=== PATIENT | female | born 1990 | race African-American/Black ===

== ENCOUNTER 2017-04-18 10:45 | Emergency (ER) | payer MEDICAID ==
[~2017-04-18] VITALS: Ht 160 cm; Wt 82.0 kg
[~2017-04-18 10:45] MED LIST: ALPR1TAB2 PO; AZAT50TA18 PO; QUET100T PO; TOPI25TA7 PO; TRAZ-129 PO; VENL37.586 PO
[2017-04-18] MEDS ORDERED: ALPRAZOLAM 0.5 MG TABLET PO ONE (11:15)
[2017-04-18 11:58] LABS: BASOPHILS % 0.8 % (0.0-2.0); EOSINOPHILS % 0.7 % (0.0-5.0); HEMATOCRIT. 33.9 % (36.0-48.0); HEMOGLOBIN. 10.7 g/dL (12.0-16.0); LYMPHOCYTES % 21.5 % (20.0-50.0); MEAN CORPUSCULAR HEMOGLOBIN 21.6 pg (28.0-32.0); MEAN CORPUSCULAR VOLUME 68.5 fL (81.0-99.0); MEAN PLATELET VOLUME 8.3 fl (7.4-10.4); MONOCYTES % 5.6 % (2.0-8.0); NEUTROPHILS % 71.4 % (40.0-76.0); PLATELET 377 x1000/uL (130-400); RED BLOOD CELL COUNT 4.94 mill/uL (4.2-5.4); RED CELL DISTRIBUTION WIDTH 19.4 % (11.6-14.6)
[2017-04-18] MEDS ORDERED: ONDANSETRON HCL 4MG/2ML VIAL IV ONE ×2 (12:00→15:00)
[2017-04-18 12:11] LABS: CARBON DIOXIDE 26 mEq/L (21-32); CHLORIDE 107 mEq/L (98-107); ETHANOL BLOOD < 10 mg/dL
[2017-04-18 12:25] LABS: PLATELET ESTIMATE NORMAL
[2017-04-18 12:42] LABS: BG BASE EXCESS -2.8 mmol/L (-2.0-2.0); BG CARBOXYHEMOGLOBIN 0.2 % (0.5-1.5); BG DEOXYHEMOGLOBIN 2.7 % (0.0-5.0); BG FRACTION INSPIRED OXYGEN 21; BG HCO3 ACT 21.5 mmol/L (22.0-26.0); BG METHEMOGLOBIN 0.3 % (0.0-1.5); BG OXYGEN SATURATION 97.3 % (92.0-98.5); BG OXYHEMOGLOBIN 96.8 % (94.0-97.0); BG PCO2 35.2 mmHg (35.0-45.0); BG PH 7.403 (7.350-7.450); BG PO2 99.9 mmHg (75.0-100.0); BG SAMPLE SITE RIGHT BRACHIAL; BG TOTAL HEMOGLOBIN 11.1 g/dL (12.0-18.0); BG VENT MODE ROOM AIR
[2017-04-18 12:57] LABS: CLARITY URINE CLOUDY (CLEAR); COLOR URINE YELLOW (YELLOW); GLUCOSE URINE NEGATIVE (NEGATIVE); KETONES URINE NEGATIVE (NEGATIVE); LEUKOCYTE ESTERASE URINE NEGATIVE (NEGATIVE); NITRITE URINE NEGATIVE (NEGATIVE); OCCULT BLOOD URINE NEGATIVE (NEGATIVE); PROTEIN URINE 1+ (NEGATIVE); SPECIFIC GRAVITY URINE 1.031 (1.005-1.030); UROBILINOGEN URINE 0.2 E.U./dL (0.2-1.0)
[2017-04-18 13:21] LABS: *AMPHETAMINES SCREEN URINE NEGATIVE (NEGATIVE); *BARBITURATES SCREEN URINE NEGATIVE (NEGATIVE); *COCAINE SCREEN URINE NEGATIVE (NEGATIVE); CANNABINOID URINE SCREEN NEGATIVE (NEGATIVE); METHADONE URINE SCREEN NEGATIVE (NEGATIVE); PHENCYCLIDINE URINE SCREEN NEGATIVE (NEGATIVE)
[2017-04-18 13:25] LABS: *BENZODIAZEPINES SCREEN URINE PRESUMTIVE POSITIVE (NEGATIVE); OPIATES URINE SCREEN PRESUMTIVE POSITIVE (NEGATIVE)
[2017-04-18] MEDS ORDERED: KETOROLAC 30MG/ML VIAL IV ONE (15:00)
[2017-04-18 15:20] VITALS: BP 124/73
== END 2017-04-18 16:04 | disposition home or self-care (01) ==
LOC: ER 11:52
DX: K50.90 Crohn's disease, unspecified, without complications (principal); G40.409 Other generalized epilepsy and epileptic syndromes, not intractable, without status epilepticus; F41.9 Anxiety disorder, unspecified; I51.9 Heart disease, unspecified; I10 Essential (primary) hypertension; Z90.49 Acquired absence of other specified parts of digestive tract; Z95.0 Presence of cardiac pacemaker
CPT/HCPCS: 36415; 36600; 70450; 80053; 80305; 81001; 81025; 82375; 82805; 85025; 96374; 96375; 96376; 99285; G0482; J1885; J2405; Z7610

== ENCOUNTER 2017-05-09 17:09 | Emergency (ER) | payer MEDICAID ==
[~2017-05-09] VITALS: Ht 170.2 cm; Wt 81.8 kg
[~2017-05-09 17:09] MED LIST changes: +AMIODARONE HCL 50MG/ML 3ML VIAL IV ONE; +DOPAMINE 400MG IN DEXT 5% 250ML PREMIX IV ONE; +EPINEPHRINE 0.1MG/ML (1:10,000) 10ML SYR ONE; +MAGNESIUM SULFATE 4G IN WATER 100ML PREMIX IV ONE; +SODIUM BICARBONATE 7.5% 0.9 MEQ/ML 50ML SYR IV ONE
[2017-05-09] MEDS ORDERED: LORAZEPAM 2MG/ML CPJ ONE (17:22)
[2017-05-09] MEDS ORDERED: EPINEPHRINE 0.1MG/ML (1:10,000) 10ML SYR ONE (17:32)
[2017-05-09] MEDS ORDERED: SODIUM CHLORIDE 0.9% 1,000 ML IV ONE (17:40)
[2017-05-09] MEDS ORDERED: DOPAMINE 400MG PREMIX 250 ML IV ONE (17:45)
[2017-05-09] MEDS ORDERED: EPINEPHRINE 4 MG in DEXT 5% WATER 250 ML IV ONE (17:45)
[2017-05-09] MEDS ORDERED: EPINEPHRINE 1 MG in SODIUM CHLORIDE 0.9% 249 ML IV PRN ×3 (17:45→18:30)
[2017-05-09 17:59] LABS: BASOPHILS % 1.2 % (0.0-2.0); EOSINOPHILS % 0.3 % (0.0-5.0); HEMATOCRIT. 30.2 % (36.0-48.0); HEMOGLOBIN. 8.5 g/dL (12.0-16.0); LYMPHOCYTES % 42.1 % (20.0-50.0); MEAN CORPUSCULAR HEMOGLOBIN 22.1 pg (28.0-32.0); MEAN CORPUSCULAR VOLUME 78.5 fL (81.0-99.0); MEAN PLATELET VOLUME 8.4 fl (7.4-10.4); MONOCYTES % 2.1 % (2.0-8.0); NEUTROPHILS % 54.3 % (40.0-76.0); PLATELET 282 x1000/uL (130-400); RED BLOOD CELL COUNT 3.85 mill/uL (4.2-5.4); RED CELL DISTRIBUTION WIDTH 19.7 % (11.6-14.6)
[2017-05-09 18:03] LABS: INR 1.5; PARTIAL THROMBOPLASTIN TIME 26.3 sec (24.0-34.0); PROTHROMBIN TIME 15.5 sec
[2017-05-09 18:14] VITALS: BP 65/36
[2017-05-09] MEDS ORDERED: LEVETIRACETAM 500MG/5ML CUP PO ONE (18:15)
[2017-05-09] MEDS ORDERED: PHENYLEPHRINE 40 MG in DEXT 5% WATER 246 ML IV PRN ×2 (18:15→18:30)
[2017-05-09 18:20] LABS: PLATELET ESTIMATE NORMAL
[2017-05-09 18:21] LABS: HCG SCREEN NEGATIVE
[2017-05-09 18:24] LABS: CARBON DIOXIDE 18 mEq/L (21-32); CHLORIDE 103 mEq/L (98-107); ETHANOL BLOOD < 10 mg/dL; PHENYTOIN 0.6 ug/mL (10-20)
[2017-05-09 18:26] LABS: CARBAMAZEPINE < 0.5 ug/mL (4-12); PHENOBARBITAL < 2.1 ug/mL (15.0-40.0); TROPONIN I 0.88 ng/mL (0.00-0.04); VALPROIC ACID < 3.0 ug/mL (50-100)
[2017-05-09] MEDS ORDERED: LEVETIRACETAM 1,000 MG in SODIUM CHLORIDE 0.9% 100 ML IV NR (18:30)
[2017-05-09 18:32] LABS: BG CARBOXYHEMOGLOBIN 0.3 % (0.5-1.5); BG DEOXYHEMOGLOBIN 65.8 % (0.0-5.0); BG FRACTION INSPIRED OXYGEN 100; BG METHEMOGLOBIN 0.4 % (0.0-1.5); BG OXYGEN SATURATION 33.7 % (92.0-98.5); BG OXYHEMOGLOBIN 33.5 % (94.0-97.0); BG PCO2 64.9 mmHg (35.0-45.0); BG PH 6.918 (7.350-7.450); BG PO2 34.5 mmHg (75.0-100.0); BG SAMPLE SITE RIGHT FEMORAL; BG TIDAL VOLUME(mL) 700 mL; BG VENT MODE VENT - A/C; BG VENT RATE 14 set
[2017-05-09] MEDS ORDERED: SODIUM BICARBONATE 8.4% 1 MEQ/ML 50ML SYR IV ONE (18:45)
[2017-05-09] MEDS ORDERED: EPINEPHRINE 4 MG in DEXT 5% WATER 250 ML IV PRN (20:15)
== END 2017-05-09 19:05 | disposition expired ==
LOC: ER 17:14 → ENRESERV 19:00 → CANRESERV 19:00 → ER 19:05 → CANBEDREQ 05-10 01:47
DX: I46.9 Cardiac arrest, cause unspecified (principal); R56.9 Unspecified convulsions; Z79.899 Other long term (current) drug therapy
CPT/HCPCS: 31500; 31525; 36415; 36556; 36600; 70450; 71010; 80053; 80156; 80165; 80184; 80185; 80307; 80329; 82375; 82805; 82962; 83690; 83880; 84443; 84484; 84703; 85025; 85610; 85730; 92950; 93005; 96365; 96368; 99291; G0482; J0171; J0282; J1265; J2060; J2370; J3475; J3490; Z7610; 94002; J1953; J7030; J7050; J7060